=== PATIENT | male | born 1975 | race Caucasian/White ===

== ENCOUNTER 2017-09-18 20:57 | Emergency (ER) | payer OTHER ==
[2017-09-18] MEDS ORDERED: Alum Hydroxide/Mag Hydroxide 15 ML, Lidocaine 2% 15 ML PO ONE ×2 (21:23)
[2017-09-18] MEDS ORDERED: Iopamidol 755 Mg/ML 100 ML Bottle IV ONE (21:43)
[2017-09-18 23:20] VITALS: BP 139/89
--- NOTE | 2017-09-19 01:15 | ER ---
DATE SEEN: 09/18/2017 REASON FOR VISIT: Chest pain. HISTORY OF PRESENT ILLNESS: This is a 42-year-old male complaining of pain in the right side of the chest. The pain is present mostly when he is swallowing, started yesterday. It seems like the food as it goes down causes sharp burning pain. There is no association with any nausea, vomiting, or shortness of breath. PAST MEDICAL HISTORY: Type 2 diabetes, hypertension, hyperlipidemia. SOCIAL HISTORY: Occasional drinking. ALLERGIES: No known allergies. PHYSICAL EXAMINATION: GENERAL: He is afebrile and has a normal blood pressure. EARS, NOSE, AND THROAT: Negative. CHEST: Clear. CARDIOVASCULAR: Normal. ABDOMEN: Soft. LABORATORY DATA: White cell count is normal. Sodium 131. Troponin less than 0.17. CT chest was unremarkable with the exception of coronary atherosclerosis. EKG, normal sinus rhythm. IMPRESSION: Acute esophagitis. TREATMENT: GI cocktail. Omeprazole 20 mg b.i.d. I recommended abstaining from alcohol, discontinuing any ibuprofen or NSAIDs except aspirin and advised also that he should be seen tomorrow by his PCP, Dr. Kuo, to consider an upper GI endoscopy. /[id number] KAVON/LEANNA
== END 2017-09-18 23:30 | disposition home or self-care (01) ==
LOC: FB.ED 20:57
DX: K20.9 Esophagitis, unspecified (principal); E11.9 Type 2 diabetes mellitus without complications; I10 Essential (primary) hypertension
CPT/HCPCS: 36415; 71260; 80053; 84484; 85025; 93005; 99285; A9270; Q9967

== ENCOUNTER 2021-09-15 03:10 | Emergency (ER) | payer OTHER ==
[2021-09-15] MEDS ORDERED: Aspirin 81 MG Tab.Chew PO ONE (03:45)
[2021-09-15] MEDS ORDERED: Nitroglycerin 0.4 MG Tab.SL SL ONE (03:51)
[2021-09-15] MEDS ORDERED: Morphine 4 MG/ML VIAL IM ONE (04:05)
[2021-09-15] MEDS ORDERED: Morphine 4 MG/ML VIAL IVPUSH ONE ×2 (04:05→04:20)
[2021-09-15] MEDS: Sodium Chloride 0.9% 10 ML Syringe FLUSH PRN ×3 (04:07→06:34)
[2021-09-15] MEDS ORDERED: Iopamidol 755 Mg/ML 100 ML Bottle IV ONE (06:15)
[2021-09-15] MEDS ORDERED: Ketorolac 30 MG/ML SDV IVPUSH ONE (06:24)
[2021-09-15 06:28] VITALS: BP 143/83
[2021-09-15] MEDS ORDERED: Enoxaparin 120 MG/0.8 ML Syringe SUBCUT STA (08:49)
[2021-09-15 09:18] LABS: ESTIMATED GFR 38 (>60)
[2021-09-15] MEDS ORDERED: Enoxaparin 150 MG/1 ML Syringe SUBCUT STA (09:29)
== END 2021-09-15 10:10 ==
LOC: FB.ED 03:10
DX: I26.99 Other pulmonary embolism without acute cor pulmonale (principal)
CPT/HCPCS: 36415; 71275; 80053; 83880; 84484; 85025; 85379; 85610; 85730; 96372; 96374; 96375; 99285; A9270; J1650; J1885; J2270; J3490; Q9967

== ENCOUNTER 2021-09-22 07:52 | Emergency (ER) | payer OTHER ==
[2021-09-22] MEDS ORDERED: Ondansetron 4 MG/2 ML SDV IVPUSH ONE (08:47)
[2021-09-22] MEDS ORDERED: Sodium Chloride 0.9% 10 ML Syringe FLUSH PRN (08:47)
[2021-09-22] MEDS ORDERED: HYDROmorphone 2 MG/ML SDV IVPUSH ONE (08:47)
[2021-09-22] MEDS ORDERED: Sodium Chloride 0.9% 1,000 ML IV SCH (09:00)
[2021-09-22 09:14] VITALS: BP 116/82; PULSE 88
[2021-09-22 09:18] LABS: ESTIMATED GFR 43 (>60)
[2021-09-22] MEDS ORDERED: Sodium Chloride 0.9% 500 ML IV ONE (09:42)
[2021-09-22] MEDS ORDERED: Iopamidol 755 Mg/ML 100 ML Bottle IV ONE (09:51)
[2021-09-22] MEDS: Magnesium Sulfate/Water 2 GM in Premix Bag 1 BAG IV ONE ×2 (11:09→11:34)
[2021-09-22] MEDS ORDERED: Magnesium Sulfate/Water 2 GM in Premix Bag 1 BAG IV ONE (11:15)
[2021-09-22] MEDS ORDERED: oxyCODONE 5 MG Tab PO ONE (12:40)
[2021-09-22] MEDS ORDERED: cefTRIAXone 1 GM Vial IVPUSH ONE (12:42)
== END 2021-09-22 13:47 | disposition home or self-care (01) ==
LOC: FB.ED 07:52
DX: R07.81 Pleurodynia (principal); J91.8 Pleural effusion in other conditions classified elsewhere; R91.8 Other nonspecific abnormal finding of lung field; I25.10 Atherosclerotic heart disease of native coronary artery without angina pectoris; E78.00 Pure hypercholesterolemia, unspecified; I10 Essential (primary) hypertension; E11.9 Type 2 diabetes mellitus without complications; E66.9 Obesity, unspecified; Z68.35 Body mass index [BMI] 35.0-35.9, adult; Z90.49 Acquired absence of other specified parts of digestive tract; Z72.0 Tobacco use; Z79.899 Other long term (current) drug therapy; Z79.84 Long term (current) use of oral hypoglycemic drugs; Z79.4 Long term (current) use of insulin; Z79.82 Long term (current) use of aspirin
CPT/HCPCS: 36415; 71045; 71275; 80053; 83735; 83880; 84484; 85025; 86140; 93005; 96365; 96375; 99285; A9270; J0696; J1170; J2405; J3475; J3490; J7030; Q9967; 93010; 99283

== ENCOUNTER 2024-10-14 14:27 | Emergency (ER) | payer OTHER ==
[2024-10-14] MEDS ORDERED: Naloxone 0.4 MG/ML SDV IVPUSH PRN (15:01)
[2024-10-14 15:24] LABS: BASOPHILS ABSOLUTE AUTO 0.0 x10-3/uL (0.0-0.3); BASOPHILS PERCENT AUTO 0.4 % (0.3-3.8); EOSINOPHILS ABSOLUTE AUTO 0.0 x10-3/uL (0.0-0.6); EOSINOPHILS PERCENT AUTO 0.1 % (0.1-6.8); LYMPHOCYTES ABSOLUTE AUTO 1.2 x10-3/uL (0.5-4.5); LYMPHOCYTES PERCENT AUTO 13.1 % (15.8-45.3); MEAN PLATELET VOLUME 8.4 fL (6.7-11.0); MONOCYTES ABSOLUTE AUTO 1.1 x10-3/uL (0.0-1.2); MONOCYTES PERCENT AUTO 11.7 % (5.5-15.2); NEUTROPHILS ABSOLUTE AUTO 7.1 x10-3/uL (1.7-6.9); NEUTROPHILS PERCENT AUTO 74.7 % (40.3-71.8); PLATELET COUNT,PLT 241 x10(3)uL (117-477); RED BLOOD CELL COUNT 4.65 x10(6)uL (3.90-5.90); RED CELL DISTRIBUTION WIDTH 13.0 % (12.4-15.0); WHITE BLOOD CELL COUNT,WBC 9.5 x10-3/uL (3.2-10.1)
[2024-10-14] MEDS: HYDROmorphone 2 MG/ML SDV IVPUSH ONE ×2 (15:25→19:02)
[2024-10-14] MEDS: Sodium Chloride 0.9% 10 ML Syringe FLUSH PRN (15:29)
[2024-10-14 15:33] LABS: BLOOD UREA NITROGEN,BUN 27 mg/dL (7-18); CARBON DIOXIDE,CO2 24 mmol/L (21-32); CHLORIDE,CL 96 mmol/L (100-110); ESTIMATED GFR 40 mL/min (>60); GLUCOSE RANDOM 278 mg/dL (80-116); POTASSIUM,K 4.2 mmol/L (3.5-5.3); SODIUM,NA 131 mmol/L (135-145)
[2024-10-14 15:34] LABS: CREATININE 2.0 mg/dL (0.70-1.30)
[2024-10-14 16:27] LABS: BASE EXCESS VENOUS,POC -4 mmol/L (-2 - 3+); PCO2 VENOUS,POC 35 mmHg (41-51); PH VENOUS,POC 7.38 pH Units (7.32-7.43)
[2024-10-14 17:38] LABS: APPEARANCE,URINE CLEAR (CLEAR); GLUCOSE,URINE >1000 mg/dL (NORMAL); OCCULT BLOOD,URINE NEGATIVE (NEGATIVE)
[2024-10-14 17:53] LABS: SQUAMOUS EPITHELIAL CELLS,UR RARE (NS,R,O)
[2024-10-14 20:03] VITALS: BP 121/73; PULSE 85
== END 2024-10-14 20:20 | disposition other institution (70) ==
LOC: FB.ED 14:27
DX: K85.90 Acute pancreatitis without necrosis or infection, unspecified (principal); I25.10 Atherosclerotic heart disease of native coronary artery without angina pectoris; E78.00 Pure hypercholesterolemia, unspecified; I10 Essential (primary) hypertension; E11.9 Type 2 diabetes mellitus without complications; Z95.1 Presence of aortocoronary bypass graft
CPT/HCPCS: 36415; 74176; 80048; 81001; 83605; 83690; 85025; 86140; 96374; 96376; 99285; J1171; J7030